=== PATIENT | male | born 1995 | race Caucasian/White ===

== ENCOUNTER → 2016-11-21 | Outpatient (CLI) | payer BC ==
--- NOTE | 2016-11-21 09:06 | KCIC ---
Ultrasound extremity nonvascular right Indication: Lump in the right posterior neck. Sonographic interrogation of an area of lump in the posterior right neck was performed. There is a lymph node at this location measuring 11 millimeters x 9 millimeters x 3 millimeters. No other abnormalities are detected. Impression: Small lymph node noted at the area of palpable abnormality. Electronically signed by: Willem Boogie MD (Nov 21, 2016 09:05:47)
== END | disposition home or self-care (01) ==
LOC: KCIC US 08:42
PROVIDERS: ATTEND Nurse Practitioner Family
DX: R22.9 Localized swelling, mass and lump, unspecified (principal); R22.1 Localized swelling, mass and lump, neck
CPT/HCPCS: 76881